=== PATIENT | male | born 1955 | race American Indian/Alaskan Native ===

== ENCOUNTER 2018-10-18 19:51 | Inpatient (IN) | payer MEDICARE ==
[~2018-10-18] VITALS: Ht 180.3 cm; Wt 103.9 kg
[2018-10-18 20:58] LABS: Source, Urine Clean Catch
[2018-10-18 21:00] LABS: Bilirubin, Urine Neg (Neg); Blood, Urine Neg (Neg); Glucose Qualitative, Urine Neg (Neg); Ketones, Urine 1+ (Neg); Leukocyte Esterase, Urine Neg (Neg); Nitrite, Urine Neg (Neg); Protein, Urine Neg (Neg); Urobilinogen, Urine NORM (Normal)
[2018-10-18 21:04] LABS: Appearance, Urine Clear (Clear); Color, Urine Yellow (P-Yellow)
[2018-10-18] MEDS ORDERED: ATOR10 PO (21:07)
[2018-10-18] MEDS ORDERED: DIVA500ER PO (21:08)
[2018-10-18] MEDS ORDERED: FURO20 PO (21:08)
[2018-10-18] MEDS ORDERED: ZESTORETIC 20-121 EA (21:10)
[2018-10-18] MEDS ORDERED: MELA3 PO (21:10)
[2018-10-18] MEDS ORDERED: TRAZ50 PO (21:11)
[2018-10-18] MEDS ORDERED: QUET25 PO (21:11)
[2018-10-18] MEDS ORDERED: OXYC5 PO (21:11)
[2018-10-18 22:45] LABS: Anion Gap 10 mmol/L (6-16); Blood Urea Nitrogen 53 mg/dL (8-24); Bun/Creatinine Ratio 12.1 (12.0-20.0); CO2, Blood 30 mmol/L (21-32); CPK Creatine Kinase 155 U/L (39-308); Calcium, Blood 8.1 mg/dL (8.5-10.1); Chloride, Blood 98 mmol/L (98-108); Creatinine, Blood 4.38 mg/dL (0.60-1.20); Glomerular Filtration Rate 14 (60-); Glucose, Blood 70 mg/dL (70-99); Magnesium, Blood 2.5 mg/dL (1.6-2.4); Phosphorus, Blood 4.2 mg/dL (2.5-4.9); Potassium, Blood 3.3 mmol/L (3.5-5.5); Sodium, Blood 138 mmol/L (136-145); Uric Acid, Blood 14.8 mg/dL (3.5-7.2); Valproic Acid 60.7 ug/mL (50.0-100.0)
[2018-10-18 22:50] LABS: U Amphetamine Screen Not Detected; U Barbituate Screen Not Detected; U Benzodiazapine Screen Not Detected; U Buprenorphine Screen Not Detected; U Cannabinoids Screen Not Detected; U Cocaine Screen Not Detected; U Methadone Screen Not Detected; U Methamphetamine Screen Not Detected; U Opiates Screen Not Detected; U Oxycodone Screen DETECTED; U Phencyclidine Screen Not Detected; U Propoxyphene Screen Not Detected
[2018-10-18 23:10] LABS: Eosinophils-Raw #,Urine 0; White Blood Cells Urine Rare /hpf (0-5)
[2018-10-19] MEDS ORDERED: DOC250 PO (00:43)
[2018-10-19] MEDS ORDERED: CLOBET30L TOP (00:46)
[2018-10-19 05:28] LABS: Hematocrit 37.8 % (37.0-53.0); Hemoglobin 12.6 g/dL (13.5-17.5)
[2018-10-19 05:54] LABS: Anion Gap 5 mmol/L (6-16); Blood Urea Nitrogen 52 mg/dL (8-24); Bun/Creatinine Ratio 19.3 (12.0-20.0); CO2, Blood 34 mmol/L (21-32); Calcium, Blood 8.8 mg/dL (8.5-10.1); Chloride, Blood 100 mmol/L (98-108); Glomerular Filtration Rate 25 (60-); Glucose, Blood 81 mg/dL (70-99); Magnesium, Blood 2.7 mg/dL (1.6-2.4); Phosphorus, Blood 3.3 mg/dL (2.5-4.9); Potassium, Blood 3.6 mmol/L (3.5-5.5); Sodium, Blood 139 mmol/L (136-145)
--- NOTE | 2018-10-19 07:33 | NUR ---
SHIFT SUMMARY PT REPORTS HE GOT A FEW HOURS OF SLEEP LAST NIGHT. VSS. AOX3, REPORTS [place] IS [place] FOLLOWS DIRECTIONS, UNABLE TO STAY FOCUSED W/ASSESSMENT QUESTIONS & RAMBLES/TENDS TO GET OFF TOPIC. REPORTS HE FEELS CONFUSED @TIMES. DENIES SOB OR NAUSEA. THIS AM HE REPORTS 8/10 BACK PAIN & WAS MEDICATED 1X W/OXYCODONE. CALL LIGHT IN REACH.
--- NOTE | 2018-10-19 08:39 | NUR ---
DR SAUNDERS HERE TO SEE PT.
--- NOTE | 2018-10-19 09:11 | NUR ---
DR LAMBERT HERE TO SEE PT.
--- NOTE | 2018-10-19 10:46 | NUR ---
PT RECENTLY REQ OXYCODONE FOR PAIN. DISCUSSED ORDERS. PT CONT TO REQ OXYCODONE. DISCUSSED WITH DR LAMBERT, REPORTED MAY GIVE TYLENOL ORDERED, THAT HE DOES NOT WANT TO INCREASE OXYCODONE. PT MED WITH TYLENOL ORDERED, PT REPORTS WILL FOLLOW DR GONGORA.
--- NOTE | 2018-10-19 16:14 | NUR ---
PT BEEN HAVING IVF INFUSING SINCE THIS RN HERE. DISCUSSED MED WITH PHARMACY. 2ND BAG OF IVF STARTED ORDERED.
--- NOTE | 2018-10-19 18:18 | NUR ---
SHIFT SUMMARY PT EATING AND DRINKING. VOIDING. REPORTS PASSING GAS. PT ENC OOB TODAY, DECLINED. PT REPORTS MOVING IN BED. PT USING CALL LIGHT APPR. PT USING URINAL. PT BEEN ASSISTED WITH ADL'S PRN. PT BEEN MED FOR PAIN PRN.
[2018-10-20 05:20] LABS: Hematocrit 38.2 % (37.0-53.0); Hemoglobin 12.6 g/dL (13.5-17.5)
--- NOTE | 2018-10-20 05:37 | NUR ---
0320: PATIENT C/O SCRATCHY THROAT. WILL REQUEST LOZENGE ON NEXT CALL TO THE HOSPITALIST SHIFT SUMMARY: PATIENT SLEPT PRETTY WELL THIS SHIFT; PATIENT COMPLAINED OF PAIN AND RECEIVED PAIN MED 3 TIMES DURING THE SHIFT. PATIENT RECEIVED IVF PER EMAR AND HAD GOOD OUT PUT.
[2018-10-20 06:16] LABS: Albumin, Blood 2.7 g/dL (3.4-5.0); Anion Gap 6 mmol/L (6-16); Blood Urea Nitrogen 34 mg/dL (8-24); Bun/Creatinine Ratio 28.1 (12.0-20.0); CO2, Blood 30 mmol/L (21-32); Calcium, Blood 8.6 mg/dL (8.5-10.1); Chloride, Blood 106 mmol/L (98-108); Creatinine, Blood 1.21 mg/dL (0.60-1.20); Glomerular Filtration Rate >60 (60-); Glucose, Blood 74 mg/dL (70-99); Magnesium, Blood 2.4 mg/dL (1.6-2.4); Phosphorus, Blood 2.2 mg/dL (2.5-4.9); Sodium, Blood 142 mmol/L (136-145)
--- NOTE | 2018-10-20 11:49 | NUR ---
PT IS ALERT AND ORIENTED. HE COMPLAINED OF BACK PAIN AND WAS TREATED WITH FENTANYL PER EMAR. HE INDEPENDENTLY USES THE URINAL IN BED. WILL CONTINUE TO MONITOR
--- NOTE | 2018-10-20 16:47 | NUR ---
PT IS ALERT AND ORIENTED AND COOPERATIVE WITH CARE. HE USES A WALKER TO AMBULATE TO THE RESTROOM. USES A URINAL IN BED. THE PT HAD LOOSE BM TODAY. HE COMPLAINS OF CHRONIC BACK PAIN, TREATED WITH FENTANYL AND ROXICODONE TODAY. HE HAS A GOOD APPETITE. HE PARTICIPATED WITH PHYSICAL THERAPY TODAY. PHYSICAL THERAPY SAID THE PT HAS MENTAL BARRIERS BUT ULTIMATELY AMBULATES WELL. SEIZURE PRECAUTIONS IN PLACE.
[2018-10-21 05:20] LABS: Albumin, Blood 2.8 g/dL (3.4-5.0); Anion Gap 6 mmol/L (6-16); Blood Urea Nitrogen 22 mg/dL (8-24); Bun/Creatinine Ratio 20.6 (12.0-20.0); CO2, Blood 30 mmol/L (21-32); Calcium, Blood 8.8 mg/dL (8.5-10.1); Chloride, Blood 108 mmol/L (98-108); Creatinine, Blood 1.07 mg/dL (0.60-1.20); Glomerular Filtration Rate >60 (60-); Glucose, Blood 74 mg/dL (70-99); Magnesium, Blood 2.1 mg/dL (1.6-2.4); Potassium, Blood 3.7 mmol/L (3.5-5.5); Sodium, Blood 144 mmol/L (136-145)
--- NOTE | 2018-10-21 11:04 | NUR ---
PT HAD A "CONCERNED [employer]" CONVEY EXTREME CONCERN WITH PT SAFETY UPON DISCHARGE. 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 PER THE CALCULATION CLERK (MIGUEL) PT HAS NO FOOD IN HIS HOUSE, ROTTING FRUIT ON THE COUNTER AND CANDY EVERYWHERE. SPOKE TO STONE UNLOADER TO ASSIST WITH DISCHARGE PLANNING.
--- NOTE | 2018-10-21 16:10 | NUR ---
DISCHARGE NOTE- PT WAS GIVEN VERBAL AND WRITTEN DISCHARGE INSTRUCTIONS AND ACKNOWLEDGED UNDERSTANDING OF THEM. SPOKE ABOUT THE IMPORTANCE OF ATTENDING THE FOLLOW UP APPOINTMENTS THAT WERE SCHEDULED FOR HIM. PT BECAME UPSET AT THE IDEA OF RETURNING TO HIS PCP STATED "SHE MUST HAVE A THING FOR HIM." PT ALSO STATED THAT THE LACQUER SHADER (MIGUEL) WANTED TO BE HIS "GIRL FRIEND" PT SEEMED TO BE EASILY IRRITATED AT THE END OF HIS STAY. PT HAPPY TO BE GETTING DISCHARGED, WAS TAKEN BY W/C BY THE RN TO THE PT ENTRANCE WHERE HER TOOK A TAXI HOME.
== END 2018-10-21 13:29 | disposition home health service (06) | DRG 683 ==
LOC: ER 19:51 → MEDS 23:00
PROVIDERS: Emergency Medicine; Internal Medicine Nephrology; Nurse Practitioner Acute Care; ADMIT Internal Medicine
DX: N17.0 Acute kidney failure with tubular necrosis (principal); F11.20 Opioid dependence, uncomplicated; I10 Essential (primary) hypertension; E78.5 Hyperlipidemia, unspecified; F43.10 Post-traumatic stress disorder, unspecified; T39.395A Adverse effect of other nonsteroidal anti-inflammatory drugs [NSAID], initial encounter; F31.70 Bipolar disorder, currently in remission, most recent episode unspecified; G47.33 Obstructive sleep apnea (adult) (pediatric); M54.9 Dorsalgia, unspecified; E83.39 Other disorders of phosphorus metabolism; D64.9 Anemia, unspecified; I12.9 Hypertensive chronic kidney disease with stage 1 through stage 4 chronic kidney disease, or unspecified chronic kidney disease; N18.9 Chronic kidney disease, unspecified; E66.9 Obesity, unspecified; G40.909 Epilepsy, unspecified, not intractable, without status epilepticus
CPT/HCPCS: 36415; 74176; 80069; 80164; 81003; 82550; 82570; 82947; 83735; 84153; 84300; 84484; 84550; 85014; 85018; 87205; 93005; 93010; 96360; 96361; 97116; 97161; 99285-25; J1644; J3010; J7030; J7060